=== PATIENT | male | born 1970 | race African-American/Black ===

== ENCOUNTER 2017-01-05 05:06 | Emergency (ER) | payer OTHER ==
[~2017-01-05] VITALS: Ht 172.7 cm; Wt 93.1 kg
[~2017-01-05 05:06] MED LIST: BENADRYL25 MG PO; HYDROCORTISONE28 G4 TP; MUCINEX600 MG PO; NOHOMEMEDS; SPECTRACEF400 MG PO
[2017-01-05 05:52] LABS: HEMATOCRIT 41.1 % (38.0-50.0); MCH 29.3 PG (29.0-34.0); MCHC 32.8 G/DL (30.0-36.0); MCV 89.2 FL (86-99); MEAN PLAT.VOLUME 9.8 uM^3 (9.0-12.4); PLATELET COUNT 253 K/uL (156-360); RBC DIS.WIDTH-CV 12.9 % (11.8-14.6); RBC DIS.WIDTH-SD 42.4 % (39-53); RED BLOOD COUNT 4.61 M/uL (4.00-5.50); WHITE BLOOD COUNT 11.5 K/uL (4.1-10.2)
[2017-01-05 06:01] LABS: CHLORIDE 104 mEq/L (99-109); SODIUM 136 mEq/L (136-147)
[2017-01-05 06:03] LABS: GLUCOSE 178 mg/dL (70-99)
[2017-01-05 06:04] LABS: ANION GAP 7 MEQ/L (2-14)
[2017-01-05 06:05] LABS: TOTAL BILIRUBIN 0.3 mg/dL (0.0-1.0)
[2017-01-05 06:06] LABS: ALKALINE PHOSPHATASE 76 IU/L (3-129)
[2017-01-05 06:07] LABS: GFR ESTIMATE (CALCULATED) > 59 mL/min/
[2017-01-05 06:08] LABS: UREA NITROGEN (BUN) 15 mg/dL (9-23)
[2017-01-05 06:10] LABS: LIPASE 56 U/L (1.0-51.0)
[2017-01-05 06:13] LABS: TROP-I INTERPRETATION NEGATIVE; TROPONIN-I < 0.01 ng/mL (0.0-0.30)
[2017-01-05] MEDS ORDERED: ONDANSETRON4 MG/5 ML PO (07:09)
[2017-01-05] MEDS ORDERED: BENTYL20 MG PO (07:09)
[2017-01-05 07:54] VITALS: BP 131/71
== END 2017-01-05 07:55 | disposition home or self-care (01) ==
LOC: EME 05:06
PROVIDERS: Emergency Medicine
DX: R10.13 Epigastric pain (principal); R11.2 Nausea with vomiting, unspecified; R07.89 Other chest pain; E11.9 Type 2 diabetes mellitus without complications; I10 Essential (primary) hypertension; F17.200 Nicotine dependence, unspecified, uncomplicated
CPT/HCPCS: 71020; 74177; 80053; 81003; 83690; 84484; 85027; 93005; 99281; 99284; J2270; J2405; J2765; J7030; S0028

== ENCOUNTER 2017-11-23 00:26 | Emergency (ER) | payer OTHER ==
[~2017-11-23] VITALS: Ht 172.7 cm; Wt 90.1 kg
[~2017-11-23 00:26] MED LIST changes: +BENTYL20 MG PO; +ONDANSETRON4 MG/5 ML PO
[2017-11-23] MEDS ORDERED: NORCO 5/3251 TABLET PO (02:12)
[2017-11-23] MEDS ORDERED: CLEOCIN300 MG PO (02:12)
[2017-11-23 02:34] VITALS: BP 167/90
== END 2017-11-23 02:35 | disposition home or self-care (01) ==
LOC: EME 00:26
DX: K04.7 Periapical abscess without sinus (principal); F17.200 Nicotine dependence, unspecified, uncomplicated; Z88.2 Allergy status to sulfonamides
CPT/HCPCS: 99281; 99283